=== PATIENT | female | born 1945 | race Caucasian/White ===

== ENCOUNTER 2017-07-04 16:00 | Outpatient (CLI) | payer MEDICARE, OTHER | END 2017-07-04 16:01 | disposition home or self-care (01) | LOC: BICMAMMO 16:00 | PROVIDERS: ATTEND Specialist | DX: Z12.31 Encounter for screening mammogram for malignant neoplasm of breast (principal) | CPT/HCPCS: 77063; 77067 ==

== ENCOUNTER 2017-09-03 10:38 | Outpatient (CLI) | payer MEDICARE, OTHER | END 2017-09-03 10:39 | disposition home or self-care (01) | LOC: BICRAD 10:38 | PROVIDERS: ATTEND Nurse Practitioner Family | DX: M47.896 Other spondylosis, lumbar region (principal); M43.16 Spondylolisthesis, lumbar region | CPT/HCPCS: 72100 ==

== ENCOUNTER 2017-09-25 08:35 | Outpatient (CLI) | payer MEDICARE, OTHER | END 2017-09-25 08:36 | disposition home or self-care (01) | LOC: BICMRI 08:35 | PROVIDERS: ATTEND Specialist | DX: M48.061 Spinal stenosis, lumbar region without neurogenic claudication (principal); M99.83 Other biomechanical lesions of lumbar region | CPT/HCPCS: 72148 ==

== ENCOUNTER 2017-10-07 14:34 | Outpatient (CLI) | payer MEDICARE, OTHER | END 2017-10-07 14:35 | disposition home or self-care (01) | LOC: BICRAD 14:34 | PROVIDERS: ATTEND Specialist | DX: M25.571 Pain in right ankle and joints of right foot (principal); M79.671 Pain in right foot; M19.071 Primary osteoarthritis, right ankle and foot ==

== ENCOUNTER 2018-02-11 11:02 | Outpatient (CLI) | payer MEDICARE, OTHER ==
--- NOTE | 2018-02-11 13:52 | RAD ---
CHEST PA AND LATERAL: History: 72-year-old female with history of pleurisy and acute post thoracotomy pain. Fall on Saturday afternoon with left sided pain. Comparison: 07-17-16 FINDINGS: Post underlying sternotomy. Mild dextroscoliosis of the thoracic vertebral column. No confluent pneum onia, overt edema, or pleural effusion. No cardiomegaly. IMPRESSION: Post underlying sternotomy. Mild dextroscoliosis thoracic vertebral column. Atherosclerosis of the ao rta. No significant new process or significant change from 07-17-16. POS: [facility]
== END 2018-02-11 11:03 | disposition home or self-care (01) ==
LOC: BICRAD 11:02
PROVIDERS: ATTEND Specialist
DX: R09.1 Pleurisy (principal); G89.12 Acute post-thoracotomy pain; M41.9 Scoliosis, unspecified; I70.0 Atherosclerosis of aorta; Z98.890 Other specified postprocedural states
CPT/HCPCS: 71046

== ENCOUNTER 2018-07-11 09:01 | Outpatient (CLI) | payer MEDICARE, OTHER ==
--- NOTE | 2018-07-30 15:53 | MMO ---
Bilateral MAMMO Bilat Screen [facility]. CLINICAL HISTORY: Patient is 73 years old and is seen for screening. The patient has no family history of breast cancer. The patient has no personal history of cancer. The patient has a history of left Ultrasound Guided Core Biopsy more than 10 years ago - benign. VIEWS: The views performed were: bilateral craniocaudal with tomosynthesis and bilateral mediolateral oblique with tomosynthesis. FILMS COMPARED: The present examination has been compared to prior imaging studies performed at [facility] on 06/08/2011 and 06/13/2011, and at [facility] on 06/13/2012, 06/15/2013, 06/16/2014, 07/01/2015, 07/03/2016 and 07/04/2017. MAMMOGRAM FINDINGS: There are scattered fibroglandular densities. There are no suspicious masses, suspicious calcifications, or new areas of architectural distortion. IMPRESSION: THERE IS NO MAMMOGRAPHIC EVIDENCE OF MALIGNANCY. A ROUTINE FOLLOW-UP MAMMOGRAM IN 1 YEAR IS RECOMMENDED. THE RESULTS OF THIS EXAM WERE SENT TO THE PATIENT. ACR BI-RADS Category 1 - Negative MAMMOGRAPHY NOTE: 1. A negative mammogram report should not delay a biopsy if a dominant of clinically suspicious mass is present. 2. Approximately 10% to 15% of breast cancers are not detected by mammography. 3. Adenosis and dense breasts may obscure an underlying neoplasm.
== END 2018-07-11 09:02 | disposition home or self-care (01) ==
LOC: BICMAMMO 09:01
DX: Z12.31 Encounter for screening mammogram for malignant neoplasm of breast (principal)
CPT/HCPCS: 77063; 77067

== ENCOUNTER 2018-11-21 13:35 | Emergency (ER) | payer MEDICARE, OTHER ==
[2018-11-21] MEDS ORDERED: Adacel (T-DAP) 0.5 ML SYRINGE ONE (14:47)
--- NOTE | 2018-11-21 16:08 | CT ---
CT CERVICAL SPINE WITHOUT CONTRAST: Comparison: None. History: Mechanical fall where she hit a push-cart, after catching her foot on the push-cart. Neck pa in. Technique: Multiple contiguous axial images were obtained in a CT of the cervical spine without contr ast. Sagittal and coronal reformats were performed. FINDINGS: Moderate degenerative changes are seen in the cervical spine. The vertebral bodies demonstrate normal height without fracture or subluxation. No prevertebral soft tissue swelling is seen. The posterior facets are aligned. Normal alignment of the skull base with the cervical spine is seen. IMPRESSION: Moderate degenerative changes of the cervical spine without acute osseous abnormality. POS: [facility]
== END 2018-11-21 15:27 | disposition home or self-care (01) ==
LOC: SCSER 13:35
DX: S16.1XXA Strain of muscle, fascia and tendon at neck level, initial encounter (principal); S00.83XA Contusion of other part of head, initial encounter; S80.212A Abrasion, left knee, initial encounter; I25.10 Atherosclerotic heart disease of native coronary artery without angina pectoris; E03.9 Hypothyroidism, unspecified; E78.5 Hyperlipidemia, unspecified; I10 Essential (primary) hypertension; W18.00XA Striking against unspecified object with subsequent fall, initial encounter; Z79.899 Other long term (current) drug therapy
CPT/HCPCS: 72125; 90471; 90715

== ENCOUNTER 2019-08-14 12:04 | Outpatient (CLI) | payer MEDICARE, OTHER ==
--- NOTE | 2019-08-14 12:39 | MMO ---
Bilateral MAMMO Bilat Screen [facility]. CLINICAL HISTORY: Patient is 74 years old and is seen for screening. The patient has no family history of breast cancer. The patient has no personal history of cancer. The patient has a history of left Ultrasound Guided Core Biopsy more than 10 years ago - benign. VIEWS: The views performed were: bilateral craniocaudal with tomosynthesis and bilateral mediolateral oblique with tomosynthesis. FILMS COMPARED: The present examination has been compared to prior imaging studies performed at [facility] on 07/03/2016, 07/04/2017 and 07/11/2018. This study has been interpreted with the assistance of computer-aided detection. MAMMOGRAM FINDINGS: There are scattered fibroglandular densities. Finding 1: There are stable benign appearing calcifications seen in both breasts. Finding 2: There is a stable biopsy clip seen in the left breast. There are no suspicious masses, suspicious calcifications, or new areas of architectural distortion. IMPRESSION: THERE IS NO MAMMOGRAPHIC EVIDENCE OF MALIGNANCY. A ROUTINE FOLLOW-UP MAMMOGRAM IN 1 YEAR IS RECOMMENDED. THE RESULTS OF THIS EXAM WERE SENT TO THE PATIENT. ACR BI-RADS Category 2 - Benign finding MAMMOGRAPHY NOTE: 1. A negative mammogram report should not delay a biopsy if a dominant of clinically suspicious mass is present. 2. Approximately 10% to 15% of breast cancers are not detected by mammography. 3. Adenosis and dense breasts may obscure an underlying neoplasm. Reported by: ELIZABETH DENNISON MD Electonically Signed: [id number]
== END 2019-08-14 12:05 | disposition home or self-care (01) ==
LOC: BICMAMMO 12:04
PROVIDERS: ATTEND Specialist
DX: Z12.31 Encounter for screening mammogram for malignant neoplasm of breast (principal); Z91.89 Other specified personal risk factors, not elsewhere classified
CPT/HCPCS: 77063; 77067

== ENCOUNTER 2020-01-22 13:36 | Emergency (ER) | payer MEDICARE, OTHER ==
[2020-01-23 12:07] LABS: SARS-CoV-2 MS2 Positive; SARS-CoV-2 N Gene Negative; SARS-CoV-2 S Gene Negative; SARS-CoV-2 by NAA Not Detected (NotDetected); SARS-CoV-2 orf1ab Negative
== END 2020-01-22 14:15 | disposition home or self-care (01) ==
LOC: ERS 13:36
DX: R19.7 Diarrhea, unspecified (principal); Z20.828 Contact with and (suspected) exposure to other viral communicable diseases; E03.9 Hypothyroidism, unspecified; E78.5 Hyperlipidemia, unspecified; I10 Essential (primary) hypertension; Z79.899 Other long term (current) drug therapy
CPT/HCPCS: 87635; 99283; U0003

== ENCOUNTER 2020-08-15 11:02 | Outpatient (CLI) | payer MEDICARE | END 2020-08-15 11:03 | disposition home or self-care (01) | LOC: BICMAMMO 11:02 | PROVIDERS: ATTEND Specialist | DX: Z12.31 Encounter for screening mammogram for malignant neoplasm of breast (principal) | CPT/HCPCS: 77063; 77067 ==

== ENCOUNTER 2024-11-19 13:26 | Outpatient (CLI) | payer MEDICARE, OTHER | END 2024-11-19 13:27 | disposition home or self-care (01) | LOC: BICRAD 13:26 | PROVIDERS: ATTEND Podiatrist | DX: M79.671 Pain in right foot (principal); M19.071 Primary osteoarthritis, right ankle and foot ==

== ENCOUNTER 2024-12-03 15:32 | Outpatient (CLI) | payer MEDICARE, OTHER | END 2024-12-03 15:33 | disposition home or self-care (01) | LOC: SCSRAD 15:32 | PROVIDERS: ATTEND Nurse Practitioner Family | DX: M25.562 Pain in left knee (principal) ==